=== PATIENT | male | born 1995 | race Caucasian/White ===

== ENCOUNTER 2021-01-09 05:08 | Emergency (ER) | payer OTHER ==
[~2021-01-09] VITALS: Ht 177.8 cm; Wt 81.7 kg
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
[2021-01-09] MEDS ORDERED: LIDOCAINE-MPF 1%, 5ML ONE (05:50)
[2021-01-09] MEDS ORDERED: DIPH,PERTUSS(ACELL),TET VAC/PF 0.5 ML IM-VACC ONE ×2 (05:51→06:00)
[2021-01-09] MEDS ORDERED: LIDOCAINE 1%, 10ML INFIL ONE (06:00)
--- NOTE | 2021-01-09 06:10 | NUR ---
WOUNDS ON FACE CLEANSED UNDER PRESSURE WITH NORMAL SALINE. PT TOLERATED WELL. NO ADDITIONAL NEEDS AT THIS TIME. AWAITING CT.
--- NOTE | 2021-01-09 06:14 | NUR ---
PT TO CT
--- NOTE | 2021-01-09 06:53 | NUR ---
BEDSIDE REPORT GIVEN TO STEVIE YUEN
--- NOTE | 2021-01-09 06:53 | NUR ---
Report received and care assumed. Per report CT scans already completed, awaiting MD for suture placement, and wound irrigated as much as pt would allow secondary to pain c/o. MD aware. Pt reportedly also refused TDaP vaccination today. Significant other is currently at bedside.
--- NOTE | 2021-01-09 07:15 | NUR ---
PA arrived at bedside to medicate sites with Lidocaine and start suture placement now.
--- NOTE | 2021-01-09 07:40 | NUR ---
AYDE completed suture placement. Awaiting MD recheck.
--- NOTE | 2021-01-09 07:50 | NUR ---
at bedside for recheck.
[2021-01-09 08:12] VITALS: BP 125/77
== END 2021-01-09 08:14 | disposition home or self-care (01) ==
LOC: ED 05:28
DX: S02.2XXB Fracture of nasal bones, initial encounter for open fracture (principal); Y04.0XXA Assault by unarmed brawl or fight, initial encounter; Y93.89 Activity, other specified; Y92.89 Other specified places as the place of occurrence of the external cause; Y99.8 Other external cause status
CPT/HCPCS: 12013; 70450; 70486; 72125; 99285

== ENCOUNTER 2021-01-16 18:09 | Emergency (ER) | payer OTHER ==
[~2021-01-16] VITALS: Ht 165.1 cm; Wt 81.0 kg
[2021-01-16 18:14] VITALS: BP 124/74
== END 2021-01-16 21:13 | disposition home or self-care (01) ==
LOC: ED 19:18
DX: S01.81XD Laceration without foreign body of other part of head, subsequent encounter (principal); X58.XXXD Exposure to other specified factors, subsequent encounter
CPT/HCPCS: 99281